=== PATIENT | male | born 1990 | race Caucasian/White ===

== ENCOUNTER 2020-12-21 08:23 | Emergency (ER) | payer BC ==
[~2020-12-21 08:23] MED LIST: PREDNISONE20 MG PO
[2020-12-21 09:06] LABS: HEMOGLOBIN 13.6 gm/dl (14.0-17.5); RED BLOOD COUNT 4.51 M/UL (4.20-5.50); WHITE BLOOD COUNT 10.5 K/UL (4.5-11.0)
[2020-12-21 09:27] LABS: BUN/CREATININE RATIO 18 (0-10)
== END 2020-12-21 11:45 | disposition home or self-care (01) ==
LOC: ER1 08:23
PROVIDERS: Preventive Medicine Occupational Medicine
DX: S39.011A Strain of muscle, fascia and tendon of abdomen, initial encounter (principal); I10 Essential (primary) hypertension; X58.XXXA Exposure to other specified factors, initial encounter
CPT/HCPCS: 80053; 83690; 85025; 85652; 86140; 96374; 99284; J2405; J7030; Q9967